=== PATIENT | male | born 1990 | race African-American/Black ===

== ENCOUNTER 2024-03-12 14:45 | Emergency (ER) | payer SELFPAY ==
[~2024-03-12 14:45] MED LIST: Iopamidol-370 76% 500 ML MDV (1 ML CHARGE) ONE
[2024-03-12 15:14] LABS: #Basophils 0.03 10x3/uL (0.0-0.2); #Eosinophils Less than 0.03 10x3/uL (0.0-0.7); %Basophils 0.3 % (0.0-1.0); %Eosinophils 0.1 % (0.0-10.0); %Lymphocytes 3.5 % (21.0-51.0); %Monocytes 6.2 % (0.0-10.0); %Neutrophils 89.5 % (42.0-75.0); Hemoglobin 16.3 g/dL (14.0-18.0); Mean Corpuscular HGB CONC 33.3 g/dL (32.0-36.0); Mean Corpuscular Hemoglobin 26.2 pg (27.0-31.0); Mean Corpuscular Volume 78.9 fL (78.0-98.0); Mean Platelet Volume 10.6 fL (7.4-10.4); Platelet Count 297 10x3/uL (130-400); Red Blood Cell (RBC) Count 6.21 mill/uL (4.70-6.10)
[2024-03-12 15:32] LABS: ALT (SGPT) 37 U/L (Less than 45); AST (SGOT) 42 U/L (11-34); Albumin 4.6 g/dL (3.1-4.5); Alkaline Phosphatase 97 U/L (40-110); Anion Gap 17 mmol/L (10-20); BUN (Urea Nitrogen) 20 mg/dL (8.9-20.6); Calc. Creatinine Clearance 0 mL/min (70-130); Calcium 9.8 mg/dL (7.8-10.44); Carbon Dioxide 23 mmol/L (22-29); Chloride 104 mmol/L (98-107); Estimated GFR 91; Glucose 150 mg/dL (70-105); Potassium 4.2 mmol/L (3.5-5.1); Protein, Total 8.6 g/dL (6.0-8.3); Sodium 140 mmol/L (136-145)
[2024-03-12] MEDS ORDERED: Ondansetron PF 4 MG/2 ML Vial ONE (15:35)
[2024-03-12] MEDS ORDERED: Morphine 4 MG/ML VIAL ONE (15:35)
[2024-03-12] MEDS ORDERED: Ketorolac Tromethamine 30 MG (1 mL) VIAL ONE (16:44)
[2024-03-12 18:41] LABS: Lactic Acid 3.65 mmol/L (0.50-2.20)
[2024-03-12 19:33] LABS: Bacteria/HPF None Seen HPF (None Seen); Bilirubin Negative (Negative); Blood, Urine Negative (Negative); CAUTI Indications for Culture Alt mental st,lethar; Clarity Clear (Clear); Glucose, Urine (Dipstick) Normal (Negative); Ketone, Urine Negative (Negative); Leukocyte Negative Leu/uL (Negative); Nitrite Negative (Negative); Protein, Urine (Dipstick) 20 mg/dL (Neg-Trace); RBC/HPF 0-3 HPF (0-3); Squamous Epithelial 0-3 HPF (0-3); Urobilinogen Normal mg/dL (Less than 2); WBC/HPF 0-3 HPF (0-3)
[2024-03-12 19:35] LABS: Specific Gravity, Urine Greater than 1.060 (1.002-1.036)
[2024-03-12 19:36] LABS: Urine Culture Reflex No No
== END 2024-03-12 19:51 | disposition home or self-care (01) ==
LOC: ERS 14:45
DX: K52.9 Noninfective gastroenteritis and colitis, unspecified (principal); R11.2 Nausea with vomiting, unspecified
CPT/HCPCS: 36415; 74177; 80053; 81001; 83605; 85025; 87040; 96361; 96374; 96375; J1885; J2270; J2405; Q9967